=== PATIENT | male | born 1955 | race Caucasian/White ===

== ENCOUNTER 2016-10-14 09:20 | Day surgery (SDC) | payer OTHER ==
[2016-10-14 16:06] VITALS: BP 122/85; PULSE 110; RESP 18; TEMP 97; O2SAT 97
[2016-10-14 17:40] VITALS: BP 118/76; PULSE 83; RESP 18; TEMP 98.1; O2SAT 95
[2016-10-14 17:55] VITALS: BP 97/66; PULSE 72; RESP 22; O2SAT 96
[2016-10-14] MEDS ORDERED: ALBUMIN HUMAN 25% 25 GM/100 ML BAGP IV ONE (17:55)
[2016-10-14] MEDS ORDERED: ALBUMIN HUMAN 25% 50 GM IV ONE (18:00)
--- NOTE | 2016-10-16 10:35 | RADRPT ---
EXAM DATE/TIME: 10/14/2016 15:57 [facility] COMPARISON: No previous studies available for comparison. INDICATIONS : Ascites. MEDICAL HISTORY : Chronic liver disease. HIV. Anemia. Cardiomyopathy. Angina. Afib. SURGICAL HISTORY : Prostatectomy. CABG Cholecystectomy. Paracentesis. ENCOUNTER: Initial ACUITY: 1 month PAIN SCORE: 5/10 LOCATION: Right lower quadrant FLUID: Total volume of 8,800 cc of clear, yellow fluid was removed. Fluid was discarded. Paracentesis was therapeutic only. Post procedure scanning reveals no hematoma or other complication. TECHNIQUE: 1. Ultrasound guidance for abdominal paracentesis. 2. Paracentesis. The risks, benefits, and alternatives to ultrasound guided paracentesis were explained to the patient in detail including the risk of bleeding and infection. Written and verbal informed consent was obt ained. With the patient on the ultrasound table, ultrasound imaging was used to select the most appropriate approach for paracentesis. Overlying skin was prepped and draped in the usual sterile fashion and wi th a local anesthetic, a dermatotomy was made with an 11 blade scalpel. A 6 [place] Xep-X-auyxhwny ca theter was introduced into the peritoneal cavity and fluid was collected. The patient tolerated the procedure well and left the ultrasound suite in stable condition. CONCLUSION: Uncomplicated ultrasound guided paracentesis. Juan Daniel Hampton MD FACR on October 16, 2016 at 9:24 Board Certified Radiologist. This report was verified electronically.
== END 2016-10-14 18:29 | disposition home or self-care (01) ==
LOC: HRAD 09:20 → HRIP 09:21 → HRAD 18:29
PROVIDERS: ATTEND Specialist
DX: R18.8 Other ascites (principal)
CPT/HCPCS: 49083; 96365; C1729; P9047

== ENCOUNTER 2016-11-14 10:28 | Day surgery (SDC) | payer OTHER ==
[2016-11-14 11:29] VITALS: BP 124/83; PULSE 104; RESP 18; TEMP 97.6; O2SAT 96
[2016-11-14] MEDS ORDERED: ALBUMIN HUMAN 25% 50 GM IV ONE (12:45)
[2016-11-14 13:08] VITALS: BP 106/63; PULSE 82; RESP 19; TEMP 97.2; O2SAT 93
--- NOTE | 2016-11-14 13:16 | RADRPT ---
EXAM DATE/TIME: 11/14/2016 11:22 [facility] COMPARISON: US GUIDED ABD PARACENTESIS, October 14, 2016, 15:57. INDICATIONS : Ascites. MEDICAL HISTORY : Chronic liver disease. HIV. Anemia. Cardiomyopathy. Angina. Atrial fibrillation. SURGICAL HISTORY : Prostatectomy. CABG. Cholecystectomy. Paracentesis. ENCOUNTER: Subsequent ACUITY: 1 month PAIN SCORE: 4/10 LOCATION: Left lower quadrant FLUID: Total volume of 7,400 cc of clear, yellow fluid was removed. Fluid was discarded. Paracentesis was therapeutic only. Post procedure scanning reveals no hematoma or other complication. TECHNIQUE: 1. Ultrasound guidance for abdominal paracentesis. 2. Paracentesis. The risks, benefits, and alternatives to ultrasound guided paracentesis were explained to the patient in detail including the risk of bleeding and infection. Written and verbal informed consent was obt ained. With the patient on the ultrasound table, ultrasound imaging was used to select the most appropriate approach for paracentesis. Overlying skin was prepped and draped in the usual sterile fashion and wi th a local anesthetic, a dermatotomy was made with an 11 blade scalpel. A 6 [place] Iad-C-zfguounq ca theter was introduced into the peritoneal cavity and fluid was collected. The patient tolerated the procedure well and left the ultrasound suite in stable condition. CONCLUSION: Uncomplicated ultrasound guided paracentesis. Emerson Hampton MD on November 14, 2016 at 13:15 Board Certified Radiologist. This report was verified electronically.
[2016-11-14 13:23] VITALS: BP 114/60; PULSE 72; RESP 18; O2SAT 94
== END 2016-11-14 14:00 | disposition home or self-care (01) ==
LOC: HRAD 10:28 → HRIP 10:29 → HRAD 14:00
PROVIDERS: ATTEND Specialist
DX: R18.8 Other ascites (principal); D64.9 Anemia, unspecified; I48.91 Unspecified atrial fibrillation; I42.9 Cardiomyopathy, unspecified; K76.9 Liver disease, unspecified; Z21 Asymptomatic human immunodeficiency virus [HIV] infection status; Z95.1 Presence of aortocoronary bypass graft
CPT/HCPCS: 49083; 96365; C1729; P9047

== ENCOUNTER 2016-11-27 10:18 | Day surgery (SDC) | payer OTHER ==
[2016-11-27 11:05] VITALS: BP 113/63; PULSE 83; RESP 16; TEMP 98.7; O2SAT 93
[2016-11-27] MEDS ORDERED: ALBUMIN HUMAN 25% 25 GM/100 ML BAGP IV ONE (11:15)
[2016-11-27 12:00] VITALS: BP 119/60; PULSE 85; RESP 20; TEMP 98.6; O2SAT 91
[2016-11-27 12:15] VITALS: BP 101/62; PULSE 113; RESP 18; O2SAT 92
--- NOTE | 2016-11-27 13:19 | RADRPT ---
EXAM DATE/TIME: 11/27/2016 10:45 [facility] COMPARISON: US GUIDED ABD PARACENTESIS, November 14, 2016, 11:22. INDICATIONS : Ascites. MEDICAL HISTORY : Chronic liver disease. HIV. Anemia. Cardiomyopathy. Angina. Atrial fibrillation. SURGICAL HISTORY : Prostatectomy. CABG Cholecystectomy. Paracentesis. ENCOUNTER: [facility] ACUITY: 2 weeks PAIN SCORE: 4/10 LOCATION: Left lower quadrant FLUID: Total volume of 3,100 cc of clear, yellow fluid was removed. Fluid was discarded. Paracentesis was therapeutic only. Post procedure scanning reveals no hematoma or other complication. TECHNIQUE: 1. Ultrasound guidance for abdominal paracentesis. 2. Paracentesis. The risks, benefits, and alternatives to ultrasound guided paracentesis were explained to the patient in detail including the risk of bleeding and infection. Written and verbal informed consent was obt ained. With the patient on the ultrasound table, ultrasound imaging was used to select the most appropriate approach for paracentesis. Overlying skin was prepped and draped in the usual sterile fashion and wi th a local anesthetic, a dermatotomy was made with an 11 blade scalpel. A 6 [place] Hpm-T-innfutzh ca theter was introduced into the peritoneal cavity and fluid was collected. The patient tolerated the procedure well and left the ultrasound suite in stable condition. CONCLUSION: Uncomplicated ultrasound guided paracentesis. Juan Daniel Hampton MD FACR on November 27, 2016 at 13:17 Board Certified Radiologist. This report was verified electronically.
== END 2016-11-27 12:40 | disposition hospice, inpatient (51) ==
LOC: HRAD 10:18 → HRIP 10:20 → HRAD 12:40
PROVIDERS: ATTEND Specialist
DX: R18.8 Other ascites (principal); I48.91 Unspecified atrial fibrillation; I42.9 Cardiomyopathy, unspecified; I20.9 Angina pectoris, unspecified; K76.9 Liver disease, unspecified; B20 Human immunodeficiency virus [HIV] disease
CPT/HCPCS: 49083; C1729